=== PATIENT | male | born 1995 | race African-American/Black ===

== ENCOUNTER 2023-09-22 17:02 | Emergency (ER) | payer MEDICAID, OTHER ==
[~2023-09-22] VITALS: Ht 188 cm; Wt 86.2 kg
[2023-09-22 17:11] VITALS: BP 126/64; TEMP 98.3; O2SAT 98
== END 2023-09-22 18:16 | disposition home or self-care (01) ==
LOC: ER 17:02
DX: J32.9 Chronic sinusitis, unspecified (principal)

== ENCOUNTER 2023-10-11 19:03 | Emergency (ER) | payer MEDICAID ==
[~2023-10-11] VITALS: Ht 188 cm; Wt 84.8 kg
[2023-10-11 19:07] VITALS: BP 138/73; TEMP 98.2
[2023-10-11] MEDS ORDERED: IBUP-1955 PO (23:19)
[2023-10-11 23:24] VITALS: O2SAT 98
== END 2023-10-11 23:24 | disposition home or self-care (01) ==
LOC: ER 19:07
DX: M25.562 Pain in left knee (principal)
CPT/HCPCS: 73564-TC

== ENCOUNTER 2023-10-18 14:27 | Emergency (ER) | payer MEDICAID ==
[~2023-10-18] VITALS: Ht 188 cm; Wt 86.2 kg
[~2023-10-18 14:27] MED LIST: IBUP-1955 PO
[2023-10-18 14:50] VITALS: BP 122/73; TEMP 98.2
[2023-10-18 16:34] VITALS: O2SAT 100
== END 2023-10-18 16:35 | disposition home or self-care (01) ==
LOC: ER 14:28
DX: M25.562 Pain in left knee (principal)